=== PATIENT | female | born 1995 | race Caucasian/White ===

== ENCOUNTER 2022-12-11 12:35 | Emergency (ER) | payer MEDICAID, SELFPAY ==
[2022-12-11 12:41] VITALS: BP 119/81; PULSE 135; RESP 20; TEMP 37.2; O2SAT 99
[2022-12-11] MEDS: LIDOCAINE HCL 2% VISC SOLN 15 ML UDC PO (13:11)
--- NOTE | 2022-12-11 13:17 | ED.FEVER ---
HPI - Fever General Chief Complaint: Fever Stated Complaint: ST, bodyaches, fever since Friday Time Seen by Provider: 12/11/22 12:38 History of Present Illness HPI Narrative: Patient is a 27-year-old female who presents ER with sore throat. Ongoing for 2 days. Associated with fever and body aches. Pain in the throat is mainly on the right side and radiates to the ear. Has pain with swallowing but is able to swallow. Has tried oral lozenges without improvement. Related Data Allergies Allergy/AdvReac Type Severity Reaction Status Date / Time nitrous oxide Allergy Seizure Verified 12/11/22 12:41 Review of Systems Constitutional: Constitutional: Reports chills, Denies fatigue and Reports fever(s) ENT: Denies nasal congestion and Reports sore throat Comments: Right ear pain Respiratory: Respiratory: Denies cough, Denies dyspnea and Denies wheezing Gastrointestinal: Gastrointestinal: Denies abdominal pain, Denies nausea and Denies vomiting PMFSH Past Medical History Medical History (Updated 12/11/22 @ 14:59 by Isael Felton MD) Healthy female adult Surgical History Surgical History (Updated 12/11/22 @ 13:19 by Isael Felton MD) No pertinent past surgical history Exam Narrative: GENERAL: Uncomfortable-appearing, well-nourished, and in no acute distress. HEAD: Normocephalic, atraumatic. ENT: Mucous membranes moist. No tonsillar hypertrophy, mild exudate right tonsil. Uvula midline and nonedematous. No BULB BRANDER. Posterior oropharynx erythematous. TMs normal bilaterally. NECK: S tender anterior cervical chain lymphadenopathy worse on the right side. CHEST: Clear to auscultation. No respiratory distress. HEART: Tachycardic and regular. Normal peripheral pulses. EXTREMITIES: Normal range of motion. No edema. NEURO: Alert and oriented x3. PSYCH: Normal mood and affect. 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 Will discharge with supportive medication. Pain improved with viscous lidocaine. Patient declined IV fluid for tachycardia. Vital Signs Vital signs: Vital Signs Temperature 98.9 F 12/11/22 12:41 Pulse Rate 135 H 12/11/22 12:41 Respiratory Rate 20 12/11/22 12:41 Blood Pressure 119/81 12/11/22 12:41 Pulse Oximetry 99 12/11/22 12:41 Oxygen Delivery Room Air 12/11/22 12:41 Temperature 98.9 F 12/11/22 12:41 Pulse Rate 135 H 12/11/22 12:41 Respiratory Rate 20 12/11/22 12:41 Blood Pressure 119/81 12/11/22 12:41 Pulse Oximetry 99 12/11/22 12:41 Oxygen Delivery Room Air 12/11/22 12:41 MDM - Fever Lab Data Labs: Lab Results 12/11/22 Range/Units 13:10 Group A Strep (PCR) Not detected (Negative) Discharge Plan Discharge Clinical Impression: Acute viral pharyngitis Patient Disposition: Home, Self-Care Condition: Stable Instructions: Pharyngitis (ED) Additional Instructions: Return the ER if you cannot breathe, you cannot swallow, you have worsening pain, you have additional concerns. Prescriptions: New lidocaine HCl [Lidocaine Viscous] 2 % solution 1 applic mucous membrane TID PRN (Reason: pain) Qty: 100 0RF Follow-up/Referrals: PHYSICIAN NOT ON STAFF,NONSTAFF [Primary Care Provider] - 1 Week
[2022-12-11 13:41] LABS: Strep Group A RT-PCR NOT DETECTED (Negative)
[2022-12-11 15:31] VITALS: BP 117/70; PULSE 119; RESP 16; O2SAT 99
== END 2022-12-11 15:32 | disposition home or self-care (01) ==
PROVIDERS: Emergency Provider Emergency Medicine
DX: J02.9 Acute pharyngitis, unspecified (principal)
CPT/HCPCS: 87651; 99283